=== PATIENT | female | born 1985 | race Caucasian/White ===

== ENCOUNTER 2019-04-07 12:27 | Emergency (ER) | payer SELFPAY ==
[~2019-04-07] VITALS: Ht 165.1 cm; Wt 81.8 kg
[2019-04-07] MEDS ORDERED: GUAIF600 PO (12:54)
[2019-04-07 16:15] VITALS: BP 115/89
== END 2019-04-07 16:19 | disposition home or self-care (01) ==
LOC: EMS 12:31
DX: J40 Bronchitis, not specified as acute or chronic (principal); F17.210 Nicotine dependence, cigarettes, uncomplicated; F12.90 Cannabis use, unspecified, uncomplicated